=== PATIENT | female | born 1960 | race Two or more races ===

== ENCOUNTER 2016-09-14 11:37 | Emergency (ER) | payer MEDICARE ==
--- NOTE | ~2016-09-14 | CR63 ---
[facility] A Service of [facility] & [facility] RADIOLOGY TEXT RESULTS PATIENT: BARBRA TIM LOCATION: SED : 62 UNIT #: [id number] AGE: [address]: Bethany Garcia APRN SEX: F ORDER DR: [id number] [address] [address] [id number] E MR#: [id number] Acc #: [id number] NAME: BARBRA TIM : 1960 SEX: F STUDY DATE/TIME: 09/14/2016 11:28 UNIT: SED ROOM: STUDY DESCRIPTION: CR Chest 2 View Attending Physician: Bethany Garcia A.P.R.N. Ordering Physician: Bethany Taylor A.P.R.N. Primary Care Physician: Lolita Castro M.D. MEDICAL IMAGING REPORT This report is preliminary unless electronic signature is present. EXAM PA and lateral chest 09/14/2016 COMPARISON None. HISTORY SUPPLIED Cough for 2 weeks. FINDINGS PA and lateral views are obtained. The cardiovascular configuration is normal and the lungs are clear. CONCLUSION Normal chest. Dictated by... Bossman Maloney M.D. THIS IS AN ELECTRONICALLY VERIFIED REPORT Bossman Maloney M.D. at 09/16/2016 2:19 PM LIU/francisco TD: 09/14/2016 14:46 JOB #: [id number] MEDICAL IMAGING REPORT Page 1 of 1
[~2016-09-14 11:37] MED LIST: ABILIFY5 MG PO; ALPRAZOLAM PO; AMITRYPTYLINE PO; AMOXICILLIN875 MG PO; AURALGAN EAR DR14 ML OT; BACTRIM DS TABL1 TA1 PO; COREG; CRESTOR5 MG PO; FLEXERIL10 MG PO; HYDROCHLOROTH12.5 MG PO; HYDROCODONE/APA1 T16 PO; INVOKANA300 MG PO; JENTADUETO XR1 EACH PO; KEFLEX500 M1 PO; LEXAPRO20 MG PO; LORTAB 7.5-5001 TAB; LOVAZA1 G; NAPROXEN CR500 MG PO; PIOGLITAZONE30 MG PO; PRESTIGE PO; PRISTIQ50 MG PO; VICTOZA0.6 MG/0.1 SUBQ
== END 2016-09-14 13:06 | disposition home or self-care (01) ==
LOC: SED 11:37
DX: J20.9 Acute bronchitis, unspecified (principal); E11.9 Type 2 diabetes mellitus without complications; I10 Essential (primary) hypertension; Z79.899 Other long term (current) drug therapy; Z88.5 Allergy status to narcotic agent
CPT/HCPCS: 71020; 99283